=== PATIENT | female | born 1995 | race Caucasian/White ===

== ENCOUNTER 2018-05-06 16:51 | Emergency (ER) | payer OTHER ==
[~2018-05-06] VITALS: Ht 160 cm; Wt 97.1 kg
[2018-05-06 19:52] VITALS: BP 136/78; TEMP 97.3
== END 2018-05-06 19:52 | disposition home or self-care (01) ==
LOC: ED 16:51
DX: J06.9 Acute upper respiratory infection, unspecified (principal)
CPT/HCPCS: 87502; 87651; 99283